=== PATIENT | female | born 1980 | race Caucasian/White ===

== ENCOUNTER 2016-06-25 18:16 | Emergency (ER) | payer BC ==
[2016-06-25 20:46] VITALS: BP 136/86
--- NOTE | 2016-06-25 20:48 | UC ---
Ear Complaint HPI - HPI Summary HPI Summary: sinus pain and pressure with pain in to ears for 4 days-- - History of Current Complaint Chief Complaint: UCEar Stated Complaint: RT EAR PAIN Time Seen by Provider: 06/25/16 20:36 Hx Obtained From: Patient Hx Last Menstrual Period: 06/17/16 ?: No Onset/Duration: Sudden Onset, Lasting Days - 4-5, Still Present Severity Initially: Moderate Severity Currently: Moderate Pain Intensity: 5 Pain Scale Used: 0-10 Numeric - Allergies/Home Medications Allergies/Adverse Reactions: Allergies Allergy/AdvReac Type Severity Reaction Status Date / Time Penicillins Allergy Intermediate Hives Verified 06/25/16 20:37 seasonal Allergy Congestion Uncoded 06/25/16 20:37 Home Medications: Home Medications Pseudoephedrine TAB* [Sudafed TAB*] 30 mg PO Q6H PRN 06/25/16 [History Confirmed 06/25/16] PMH/Surg Hx/FS Hx/Imm Hx Previously Healthy: Yes - Surgical History Surgical History: None - Family History Known Family History: Positive: None Family History: no cardio vascular issues in family lineage - Social History Occupation: Employed Full-time Lives: With Family Alcohol Use: Occasionally Substance Use Type: None Smoking Status (MU): Never Smoked Tobacco Review of Systems Constitutional: Negative Skin: Negative Eyes: Negative ENT: Ear Ache Respiratory: Negative Cardiovascular: Negative Gastrointestinal: Negative Genitourinary: Negative Motor: Negative Neurovascular: Negative Musculoskeletal: Negative Neurological: Negative Psychological: Negative All Other Systems Reviewed And Are Negative: Yes Physical Exam Triage Information Reviewed: Yes Appearance: Well-Appearing, No Pain Distress, Well-Nourished Vital Signs: Initial Vital Signs Temp 98 F 06/25/16 20:40 Pulse 88 06/25/16 20:40 Resp 18 06/25/16 20:40 BP 136/86 06/25/16 20:40 Pulse Ox 100 06/25/16 20:40 Vital Signs Reviewed: Yes Eye Exam: Normal Eyes: Positive: Conjunctiva Clear ENT Exam: Normal ENT: Positive: Normal ENT inspection, Hearing grossly normal, Pharynx normal, Nasal congestion, Nasal drainage, TMs normal. Negative: Tonsillar swelling, Tonsillar exudate, Trismus, Muffled/hoarse voice Dental Exam: Normal Neck exam: Normal Neck: Positive: Supple, Nontender, No Lymphadenopathy Respiratory Exam: Normal Respiratory: Positive: Chest non-tender, Lungs clear, Normal breath sounds, No respiratory distress Cardiovascular Exam: Normal Cardiovascular: Positive: RRR, No Murmur, Pulses Normal, Brisk Capillary Refill Musculoskeletal Exam: Normal Musculoskeletal: Positive: Strength Intact, ROM Intact, No Edema Neurological Exam: Normal Neurological: Positive: Alert, Muscle Tone Normal Psychological Exam: Normal Skin Exam: Normal Ear Complaint Course/Dx - Course Course Of Treatment: flonase, allergy medication, follow with pcp with sx fail to resolve - Differential Dx/Diagnosis Differential Diagnosis/HQI/PQRI: Foreign Body - Serrous otitis, eustation tube dysfunction, Otitis Externa, Otitis Media, Pharyngitis, URI Provider Diagnoses: eustation tube dysfunction, serrous otitis Discharge - Discharge Plan Condition: Stable Disposition: HOME Patient Education Materials: Ibuprofen (By mouth), Cetirizine (By mouth), Fluticasone (Into the nose), Serous Otitis Media (ED) Referrals: Sharon Vasquez HR CLERK [Primary Care Provider] - 5 Days
== END 2016-06-25 21:02 | disposition home or self-care (01) ==
LOC: UCCORT 18:16
DX: H69.91 Unspecified Eustachian tube disorder, right ear (principal); H65.91 Unspecified nonsuppurative otitis media, right ear; Z88.0 Allergy status to penicillin
CPT/HCPCS: 99211; G0463

== ENCOUNTER 2018-05-06 08:19 | Emergency (ER) | payer BC ==
[2018-05-06 08:35] VITALS: BP 127/85
[2018-05-06 09:03] LABS: Influenza A Molecular POSITIVE (Negative)
--- NOTE | 2018-05-06 09:08 | UC ---
FLU HPI - HPI Summary HPI Summary: Pt presents with sudden onset fever, chills, body aches, HARMAN X 1 day. - History of Current Complaint Chief Complaint: UCRespiratory Stated Complaint: FLU SYMP Time Seen by Provider: 05/06/18 08:46 Hx Obtained From: Patient Hx Last Menstrual Period: "two weeks ago" ?: No Onset/Duration: Sudden Onset, Still Present Severity Currently: Moderate Severity Initially: Moderate Pain Intensity: 5 Associated Signs & Symptoms: Positive: Fever, Myalgia, Cough, Sore Throat, Nasal Congestion, Headache Related Hx: Possible Flu/Infectious Exposure - Risk Factors Influenza Risk Factors: Negative - Allergy/Home Medications Allergies/Adverse Reactions: Allergies Allergy/AdvReac Type Severity Reaction Status Date / Time Penicillins Allergy Hives Verified 05/06/18 08:30 Home Medications: Home Medications Escitalopram * [Lexapro *] 20 mg PO DAILY 05/06/18 [History Confirmed 05/06/18] LoraTADine TAB(NF) [Claritin 10 MG TAB(NF)] 10 mg PO DAILY 05/06/18 [History Confirmed 05/06/18] Norethindr/Eth Estradiol(Nf) [Lo Loestrin Fe (NF)] 1 tab PO DAILY 05/06/18 [ History Confirmed 05/06/18] PMH/Surg Hx/FS Hx/Imm Hx Previously Healthy: Yes - Surgical History Surgical History: None - Family History Known Family History: Positive: None Family History: no cardio vascular issues in family lineage - Social History Alcohol Use: Occasionally Substance Use Type: None Smoking Status (MU): Never Smoked Tobacco Have You Smoked in the Last Year: No Review of Systems All Other Systems Reviewed And Are Negative: Yes Constitutional: Positive: Fever, Chills, Fatigue Skin: Positive: Negative Eyes: Positive: Negative ENT: Positive: Sore Throat, Sinus Congestion Respiratory: Positive: Cough Cardiovascular: Positive: Negative Gastrointestinal: Positive: Negative Genitourinary: Positive: Negative Motor: Positive: Negative Neurovascular: Positive: Negative Musculoskeletal: Positive: Myalgia Neurological: Positive: Negative Psychological: Positive: Negative Is Patient Immunocompromised?: No Physical Exam Triage Information Reviewed: Yes Appearance: Ill-Appearing Vital Signs: Initial Vital Signs Temp 98.5 F 05/06/18 08:29 Pulse 96 05/06/18 08:29 Resp 16 05/06/18 08:29 BP 127/85 05/06/18 08:29 Pulse Ox 100 05/06/18 08:29 Vital Signs Reviewed: Yes Eye Exam: Normal ENT: Positive: Nasal congestion Dental Exam: Normal Neck exam: Normal Respiratory Exam: Normal Cardiovascular Exam: Normal Musculoskeletal Exam: Normal Neurological Exam: Normal Psychological Exam: Normal Skin Exam: Normal Flu Course/Dx - Differential Dx/Diagnosis Differential Diagnosis/HQI/PQRI: Influenza, Upper Respiratory Infection Provider Diagnosis: Influenza A Discharge - Sign-Out/Discharge Documenting (check all that apply): Patient Departure All imaging exams completed and their final reports reviewed: No Studies - Discharge Plan Condition: Stable Disposition: HOME Prescriptions: Oseltamivir CAP* [Tamiflu CAP*] 75 mg PO Q12H #10 cap Patient Education Materials: Influenza (ED) Referrals: Sharon Vasquez NP [Primary Care Provider] - If Needed - Billing Disposition and Condition Condition: STABLE Disposition: Home - Attestation Statements Provider Attestation: I was available for consult. This patient was seen by the EFRAIN. The patient was not presented to, seen by, or examined by me. EK
== END 2018-05-06 09:18 | disposition home or self-care (01) ==
LOC: UCCORT 08:19
DX: J10.1 Influenza due to other identified influenza virus with other respiratory manifestations (principal); Z88.0 Allergy status to penicillin
CPT/HCPCS: 99212; G0463

== ENCOUNTER 2019-06-02 14:53 | Emergency (ER) | payer BC ==
[2019-06-02 15:06] VITALS: BP 120/91
--- NOTE | 2019-06-02 15:23 | UC ---
Skin Complaint HPI - HPI Summary HPI Summary: 38 yo woman stapling garden cloth and stapled her right 2nd and 3rd fingers together. - History of Current Complaint Chief Complaint: UCTrauma Stated Complaint: FINGER INJ Hx Obtained From: Patient Hx Last Menstrual Period: "two weeks ago" ?: No Onset/Duration: Sudden Onset Skin Exposure Onset/Duration: Hours Ago - 1 Timing: Constant Onset Severity: Moderate Current Severity: None Pain Intensity: 0 Location: Hand (Right) - staple across 2nd and 3rd finger Character: Pain Aggravating Factor(s): Touch Alleviating Factor(s): Nothing Associated Signs & Symptoms: Positive: Negative Related History: Trauma - staple - Allergy/Home Medications Allergies/Adverse Reactions: Allergies Allergy/AdvReac Type Severity Reaction Status Date / Time Penicillins Allergy Hives Verified 06/02/19 15:06 Home Medications: Home Medications Escitalopram * [Lexapro *] 20 mg PO DAILY 05/06/18 [History Confirmed 06/02/19] LoraTADine TAB(NF) [Claritin 10 MG TAB(NF)] 10 mg PO DAILY 05/06/18 [History Confirmed 06/02/19] Norethindr/Eth Estradiol(Nf) [Lo Loestrin Fe (NF)] 1 tab PO DAILY 05/06/18 [ History Confirmed 06/02/19] Cephalexin CAP* [Keflex 500 CAP*] 500 mg PO QID #12 cap 06/02/19 [Rx] PMH/Surg Hx/FS Hx/Imm Hx Psychological History: Anxiety - Surgical History Surgical History: None - Family History Known Family History: Positive: None Negative: Cardiac Disease, Hypertension Family History: no cardio vascular issues in family lineage - Social History Occupation: Employed Full-time Lives: With Family Alcohol Use: Daily Substance Use Type: None Smoking Status (MU): Never Smoked Tobacco Have You Smoked in the Last Year: No - Immunization History Most Recent Tetanus Shot: unknown Review of Systems All Other Systems Reviewed And Are Negative: Yes Skin: Positive: Other - staple in right 2nd and 3rd fingers Is Patient Immunocompromised?: No Physical Exam Triage Information Reviewed: Yes Appearance: Well-Appearing, No Pain Distress, Well-Nourished Vital Signs: Initial Vital Signs Temp 98.9 F 06/02/19 15:01 Pulse 94 06/02/19 15:01 Resp 18 06/02/19 15:01 BP 120/91 06/02/19 15:01 Pulse Ox 96 06/02/19 15:01 Vital Signs Reviewed: Yes Eyes: Positive: Conjunctiva Clear Neck exam: Normal Respiratory Exam: Normal Cardiovascular Exam: Normal Musculoskeletal Exam: Normal Neurological Exam: Normal Psychological Exam: Normal Skin: Positive: Other - puncture wounds right 2nd and 3rd palmar fingers Images Hands: 1 - staple in place across the fingers Procedures - Procedure Summary Procedure Summary: Removal foreign body right hand. Time out done. Staple gripped with forceps and removed. no anesthesia. - Sedation Patient Received Moderate/Deep Sedation with Procedure: No Course/Dx - Differential Diagnoses - Skin Complaint Differential Diagnoses: Abscess, Cellulitis, Lymphangitis - Diagnoses Provider Diagnosis: Puncture wound of right hand with foreign body Discharge ED - Sign-Out/Discharge Documenting (check all that apply): Patient Departure All imaging exams completed and their final reports reviewed: No - Discharge Plan Condition: Stable Disposition: HOME Prescriptions: Cephalexin CAP* [Keflex 500 CAP*] 500 mg PO QID #12 cap Patient Education Materials: Puncture Wound (ED) Referrals: Sharon Vasquez NP [Primary Care Provider] - - Billing Disposition and Condition Condition: STABLE Disposition: Home
[2019-06-02] MEDS ORDERED: Tetan/Diph/Pertus SYR(Tdap)* 0.5 ML SYR(BOOSTRIX) use SYR contains LATEX IM ONE (15:24)
== END 2019-06-02 15:47 | disposition home or self-care (01) ==
LOC: UCCORT 14:53
DX: S61.240A Puncture wound with foreign body of right index finger without damage to nail, initial encounter (principal); S61.242A Puncture wound with foreign body of right middle finger without damage to nail, initial encounter; W27.8XXA Contact with other nonpowered hand tool, initial encounter; Y93.89 Activity, other specified; Y92.9 Unspecified place or not applicable; Z23 Encounter for immunization; F41.9 Anxiety disorder, unspecified; Z79.899 Other long term (current) drug therapy; Z88.0 Allergy status to penicillin
CPT/HCPCS: 90471; 90715; 99212; G0463